=== PATIENT | male | born 1965 | race American Indian/Alaskan Native ===

== ENCOUNTER → 2018-11-15 09:44 | Outpatient (CLI) | payer MEDICARE, OTHER, SELFPAY ==
--- NOTE | 2018-11-15 | DI.CT.S_ITS ---
PROCEDURE: CT CHEST W CON INDICATIONS: RIGHT UPPER LOBE LESION TECHNIQUE: After the administration of intravenous contrast, 5 mm thick sections acquired from the pulmonary apices to the posterior costophrenic angles. 7 mm thick coronal and sagittal MIP reformats were acquired. For radiation dose reduction, the following was used: automated exposure control, adjustment of mA and/or kV according to patient size. COMPARISON: [facility], , CHEST 2 VIEW, 08/01/2015, 16:11. [facility], CT, CT CERVICAL SPINE WITHOUT CONTRAST, 09/10/2018, 0:36. [facility], CR, XR CHEST 2 VIEWS, 09/17/2018, 0:22. [facility], CT, CT CERVICAL SPINE WITHOUT CONTRAST, 10/17/2018, 17:40. FINDINGS: Image quality: Excellent. Lungs and pleura: No acute air space opacities. There is bilateral moderate centrilobular emphysema with asymmetric lung parenchymal scarring at the right upper lobe, previously present. A focal mass lesion is not present. No pleural effusions or pneumothorax. Central and peripheral airways are patent and normal in caliber. Mediastinum: Heart size is normal. No pericardial effusion. No mediastinal or hilar adenopathy by size criteria. Thoracic aorta and central pulmonary arteries are normal in size. Esophagus is normal in caliber. No hiatal hernia. Bones and chest wall: No suspicious bony lesions. No vertebral body compression fractures. No axillary or supraclavicular adenopathy by size criteria. Thyroid gland appears normal where well visualized. Abdomen: Visualized upper abdominal solid organs appear normal. Upper abdominal bowel loops are normal in caliber. IMPRESSION: Moderate centrilobular emphysema with asymmetric right greater than left apical lung parenchymal scarring. This asymmetric appearance has been present on prior chest plain films including 08/01/15, and no underlying malignancy is suspected. Dictated by: Curtis Farley M.D. on 11/15/2018 at 11:11 Approved by: Curtis Farley M.D. on 11/15/2018 at 11:15
== END ==
DX: R91.8 Other nonspecific abnormal finding of lung field (principal); J43.2 Centrilobular emphysema; J98.4 Other disorders of lung
CPT/HCPCS: 71260; Q9967

== ENCOUNTER 2019-10-18 08:21 | Day surgery (SDC) | payer MEDICARE, OTHER, SELFPAY ==
[2019-10-18 08:59] VITALS: BP 126/84; PULSE 70; RESP 18; TEMP 36.7; O2SAT 100
[2019-10-18] MEDS: SODIUM CHLORIDE 0.9% 1,000 ML 200 ML IV (09:15)
--- NOTE | 2019-10-18 09:46 | PM.OP.ENDO ---
Operative Date/Time/Diagnoses Date of procedure: 10/18/19 Time of procedure: 10:21 Pre-op diagnosis: Average risk for colon cancer, unexplained weight loss Post-op diagnosis: other (Tiny benign-appearing polyp at 40 cm, not removed because of difficult position, diverticulosis in the descending and sigmoid colon, thickening of the mucosa consistent with prior episodes of diverticulitis, grade 2 internal hemorrhoids) Procedure & Clinicians Study performed: Colonoscopy Same procedure as scheduled: Yes Indications: Average risk for colon cancer, greater than 10 years since last colonoscopy Surgeon: Elizabeth Houston Procedure Notes SCOAP/Timeout: Performed Procedure in detail: The patient was brought to the room and placed in left lateral decubitus position with all bony prominences padded. A time-out was performed and then the patient was given procedural sedation starting with [4] mg of Versed and [100] mcg of fentanyl. Total of 6 mg of Versed and 200 micro g of fentanyl were given for the entire procedure. Vitals were monitored throughout the procedure and remained stable. Once adequately sedated the procedure was begun. A rectal exam was performed revealing [no abnormalities]. The colonoscope was then introduced to the rectum and advanced to the cecum in the usual fashion. []The cecum was identified by the appendiceal orifice, the mucosal tri-fold, and the ileocecal valve. The prep was relatively poor, and there was some solid stool and stool adherent to the galeano of the colon. A tiny polyp was seen at 40 cm, but after multiple attempts could not be removed due to its position behind a mucosal fold. It appeared hyperplastic and not adenomatous. Moderate diverticulosis was seen throughout the descending and sigmoid colon. Some thickening of the mucosa consistent with prior episodes of diverticulitis was seen. The scope was then retracted while rotating side to side and examining each mucosal fold. [] At the conclusion of the procedure retroflexion was performed and [small grade 1-2 internal hemorrhoids without stigmata of bleeding were seen]. The scope was then withdrawn from the rectum the procedure was concluded. The patient tolerated the procedure well and was transferred to the PACU in stable condition. Scope withdrawal time: 20 Sedation minutes: 28 Findings: diverticulosis and polyp (Small benign-appearing at 40 cm) Specimen(s): none sent Complications: none Impression: Poor prep, Diverticulosis, thickened mucosa consistent with prior diverticulitis, tiny benign-appearing polyp at 40 cm, internal hemorrhoids Post-procedure Recommendations: Colonscopy in 5 years (Repeat colonoscopy in 5 years because of inability to see small polyps due to adherent stool. Recommend 2 day prep on next colonoscopy.) Follow up: as needed Disposition: PACU
--- NOTE | 2019-10-18 09:47 | PM.HP.1 ---
History of Present Illness History of Present Illness Date Patient Seen: 10/18/19 Time Patient Seen: 09:47 Chief complaint: 12496 SCREENING COLONOSCOPY Narrative: This is a 54-year-old man with history of screening colonoscopy an unknown number of years ago. He is not sure why he had it done, but he was having ?some type of symptoms.He was told to have a repeat colonoscopy in 10 years, so we presume nothing concerning was found during his procedure. He denies any rectal bleeding, melena, unexplained abdominal pain. He has had some unexplained weight loss. He knows his father has had polyps, but he does not believe he has had any surgical procedures for his colon other than colonoscopies. He denies any significant heart or lung problems. He does have some depression for which he takes several medications. The note from his primary doctor does mention a family history of colon cancer, but he is not aware of this. Past medical history: PTSD, alcohol dependence, major depressive disorder, adult ADHD, rheumatoid arthritis, tobacco use, chronic GERD, COPD, family history of colon cancer Surgical history: Right inguinal hernia repair Social history: Tobacco use, alcohol dependence Family history: Unclear, possible history of colon cancer Allergies: Codeine, rash/hives ROS: Thirteen system review is otherwise negative other than as mentioned below and in HPI. PE: GENERAL: Well groomed and cooperative. Appears stated age. Answers questions promptly and appropriately. Vital signs noted. HENT: Normocephalic, atraumatic. Hearing intact. Oral mucosa is pink and moist. EYES: Conjunctiva pink, sclera white, no periorbital swelling. CARDIOVASCULAR: Regular rate. No pedal edema. RESPIRATORY: Non-tachypneic, breathing comfortably on room air. GASTROINTESTINAL: Abdomen soft and non-distended GENITALURINARY: No flank tenderness. MUSCULOSKELETAL: Equal tone and mass bilaterally. SKIN: Warm, dry, soft, appropriate color for ethnicity. No other lesions, rashes, or wounds. NEURO: Alert and Oriented X 3. No gross sensory deficits, or cognitive issues. PSYCH: Appropriate affect and mood. Patient History Family & Social History Social History: household members spouse Tobacco & Substance use: Tobacco type cigarettes Smoking Status Current every day smoker alcohol intake former Substance Use Type does not use Meds Home Medications and Allergies Home Medications Medication Instructions Recorded Confirmed Type sodium,potassium,mag sulfates 17.5 177 ml PO DAILY #354 ml 10/11/19 Rx gram-3.13 gram-1.6 gram oral soln albuterol sulfate 1 inh INHALATION QID PRN 10/18/19 10/18/19 History atomoxetine 40 mg PO DAILY 10/18/19 10/18/19 History buspirone 15 mg PO DAILY 10/18/19 10/18/19 History fluticasone propionate [Flonase 50 mcg INTRANASAL DAILY 10/18/19 10/18/19 History Allergy Relief] loratadine 10 mg PO DAILY 10/18/19 10/18/19 History nicotine 1 patch TRANSDERMAL Q24H 10/18/19 10/18/19 History prazosin 1 mg PO BEDTIME 10/18/19 10/18/19 History venlafaxine 37.5 mg PO DAILY 10/18/19 10/18/19 History Allergies Allergy/AdvReac Type Severity Reaction Status Date / Time codeine Allergy Intermediate Hives Verified 10/18/19 09:08 Exam Vital Signs (past 8 hours): - 10/18/19 08:59 Temperature 98.1 F Pulse Rate 70 Respiratory Rate 18 Blood Pressure 126/84 Pulse Oximetry 100 Oxygen Delivery Method Room Air Assessment & Plan Assessment and plan (1) At average risk for colon cancer: Current visit: Yes Status: Acute (2) Unexplained weight loss: Current visit: Yes Status: Acute Assessment & Plan narrative: This is a 54-year-old man with history of colonoscopy over 10 years ago, which was reportedly normal. Risks and benefits of screening colonoscopy and possible polypectomy were discussed with the patient including risk of bleeding, perforation, need for additional procedures, risks of anesthesia. The patient desires to proceed with the colonoscopy procedure. Time Spent With Patient Time with patient: 15-24 minutes Quality VTE Deep Vein Thrombosis/Pulmonary Embolism Present on Admission: No
[2019-10-18] MEDS: MIDAZOLAM 5 MG/5 ML VIAL IV (10:02)
[2019-10-18] MEDS: fentaNYL 250 MCG/5 ML INJ IV (10:03)
[2019-10-18 10:28] VITALS: BP 112/79; PULSE 86; RESP 12; TEMP 36.6; O2SAT 97
[2019-10-18 10:33] VITALS: BP 114/80; PULSE 80; RESP 14; O2SAT 98
[2019-10-18 10:38] VITALS: BP 114/89; PULSE 78; RESP 13; O2SAT 97
[2019-10-18 10:42] VITALS: BP 130/80; PULSE 70; RESP 14; O2SAT 98
[2019-10-18 10:54] VITALS: BP 125/88; PULSE 70; RESP 15; TEMP 36.5; O2SAT 99
== END 2019-10-18 10:58 | disposition home or self-care (01) ==
PROVIDERS: PCP Family Medicine; Referring Provider Surgery; Visit Provider Surgery
PROC: 0DJD8ZZ Inspection of Lower Intestinal Tract, Via Natural or Artificial Opening Endoscopic (ICD-10-PCS; CPT 45378; principal; 2019-10-18 09:45)
DX: Z12.11 Encounter for screening for malignant neoplasm of colon (principal); R63.4 Abnormal weight loss; K57.30 Diverticulosis of large intestine without perforation or abscess without bleeding; K64.1 Second degree hemorrhoids; K63.5 Polyp of colon
CPT/HCPCS: 45380; 99152; 99153; J2250; J3010